=== PATIENT | female | born 1995 | race Caucasian/White ===

== ENCOUNTER 2018-05-05 16:02 | Emergency (ER) | payer OTHER ==
[~2018-05-05] VITALS: Ht 154.9 cm; Wt 69.8 kg
[2018-05-05 16:07] VITALS: BP 132/88
[2018-05-05] MEDS ORDERED: LIDOCAINE-MPF 1%, 5ML INFIL ONE (16:30)
--- NOTE | 2018-05-05 16:33 | NUR ---
AFTER ASSESSMENT ON PREVIOUSLY LANCED ABSCESS, PT OPTING TO CONTINUE WITH ABX AND WARM COMPRESSES.
== END 2018-05-05 16:52 ==
LOC: ED 16:46
DX: L05.01 Pilonidal cyst with abscess (principal)
CPT/HCPCS: 99283